=== PATIENT | male | born 1960 | race Caucasian/White ===

== ENCOUNTER 2017-11-22 03:03 | Observation (INO) | payer OTHER ==
[~2017-11-22] VITALS: Ht 188 cm; Wt 115.7 kg
[2017-11-22 03:58] LABS: CALCIUM 9.2 mg/dL (8.5-10.1); CARBON DIOXIDE 22.8 mmol/L (21-32); CHLORIDE SERUM 106 mmol/L (98-107); CREATININE SERUM 1.2 mg/dL (0.7-1.3); GFR1 > 60 mL/min; GLUCOSE SERUM 104 mg/dL (74-106); POTASSIUM SERUM 3.8 mmol/L (3.5-5.1); SODIUM SERUM 141 mmol/L (136-145)
[2017-11-22 04:03] LABS: ALBUMIN 3.9 g/dL (3.4-5.0); ALKALINE PHOSPHATASE 64 U/L (46-116); ALT/SGPT 31 U/L (16-63); AST/SGOT 16 U/L (15-37); BILIRUBIN TOTAL 0.4 mg/dL (0.20-1.00); TOTAL PROTEIN, SERUM 7.4 g/dL (6.4-8.2)
[2017-11-22 04:26] LABS: BASOPHIL % 0.5 % (0-2); PLATELET COUNT 238 x10^3mcL (130-400); RED CELL DISTRIBUTION WIDTH 13.6 % (11.5-14.5)
[2017-11-22] MEDS ORDERED: ASPIRIN ADULT L81 M5 PO (05:40)
[2017-11-22] MEDS ORDERED: TAMSULOSIN HYD0.4 M1 PO (05:41)
[2017-11-22] MEDS ORDERED: ASPIR 8181 MG PO (05:41)
[2017-11-22] MEDS ORDERED: MIRTAZAPINE15 M2 PO (05:42)
[2017-11-22] MEDS ORDERED: BUSPIRONE HCL5 MG PO (05:42)
[2017-11-22] MEDS ORDERED: REMERON30 MG PO (05:43)
[2017-11-22] MEDS ORDERED: MYRBETRIQ25 MG PO (05:43)
[2017-11-22 05:54] LABS: CHOLESTEROL/HDL RATIO 4.3; MAGNESIUM 1.9 mg/dL (1.8-2.4)
[2017-11-22 06:32] VITALS: BP 113/61
[2017-11-22 09:22] VITALS: BP 118/76
[2017-11-22 11:01] LABS: microscopic required? YES; urine erythrocyte NEGATIVE (NEGATIVE)
[2017-11-22 11:09] LABS: AMPHETAMINE QUAL UR NONE DETECTED (NEG <=1000)
[2017-11-22 11:25] VITALS: BP 118/76
[2017-11-22 17:30] VITALS: BP 134/77
[2017-11-22 21:08] VITALS: BP 129/65
[2017-11-23 06:47] VITALS: BP 135/75
[2017-11-23 07:30] LABS: PLATELET COUNT 256 x10^3mcL (130-400); RED CELL DISTRIBUTION WIDTH 12.6 % (11.5-14.5)
[2017-11-23 07:33] LABS: CALCIUM 9.6 mg/dL (8.5-10.1); CARBON DIOXIDE 27.6 mmol/L (21-32); CHLORIDE SERUM 104 mmol/L (98-107); CREATININE SERUM 1.1 mg/dL (0.7-1.3); GFR1 > 60 mL/min; GLUCOSE SERUM 98 mg/dL (74-106); POTASSIUM SERUM 4.2 mmol/L (3.5-5.1); SODIUM SERUM 140 mmol/L (136-145)
[2017-11-23 07:35] LABS: BASOPHIL % 2.4 % (0-2)
[2017-11-23 10:38] VITALS: BP 142/75
[2017-11-23 13:55] VITALS: BP 142/75
[2017-11-23 14:49] VITALS: BP 139/80
[2017-11-23 18:14] VITALS: BP 114/75
== END 2017-11-23 18:25 | disposition other institution (70) | DRG 303 ==
LOC: ED 03:03 → DU 04:41
PROVIDERS: Emergency Medicine; Internal Medicine
DX: I25.119 Atherosclerotic heart disease of native coronary artery with unspecified angina pectoris (principal); I10 Essential (primary) hypertension; E78.5 Hyperlipidemia, unspecified; I25.2 Old myocardial infarction; Z95.5 Presence of coronary angioplasty implant and graft; Z79.82 Long term (current) use of aspirin
CPT/HCPCS: 83880; A9500; G0378; J1956; J2270; J2405; J2785; J7040